=== PATIENT | female | born 2000 | race Caucasian/White ===

== ENCOUNTER 2024-05-01 07:26 | Emergency (ER) | payer OTHER ==
[~2024-05-01] VITALS: Ht 160 cm; Wt 70.2 kg
[2024-05-01 07:29] VITALS: BP 128/84; TEMP 97; O2SAT 100
[2024-05-01 08:32] LABS: KETONE, URINE AUTO RFX NEGATIVE (NEGATIVE); RBC, URINE AUTO RFX 0 /HPF (0-3); SQUAM EPITHELIAL CELL UR AURFX 3 /HPF (0-6); WBC, URINE AUTO RFX 5 /HPF (0-3)
[2024-05-01 08:34] LABS: LEUKOCYTE ESTERASE UR AUTO RFX 1+ (NEGATIVE); NITRITE, URINE AUTO RFX POSITIVE (NEGATIVE)
[2024-05-01] MEDS: IBUPROFEN 800 MG TAB PO ONE (12:15)
[2024-05-01] MEDS: CEFDINIR 300 MG CAP (OMNICEF) PO ONE (14:00)
[2024-05-01 14:25] LABS: GC DNA AMPLIFICATION NEGATIVE (NEGATIVE)
[2024-05-01] MEDS ORDERED: METR70GE8 PV (14:38)
[2024-05-01] MEDS ORDERED: CEFD300CAP PO (14:38)
[2024-05-01 15:49] LABS: URINE PREG TEST NEGATIVE (NEGATIVE)
== END 2024-05-01 14:46 | disposition home or self-care (01) ==
LOC: M ED 07:26
DX: N30.00 Acute cystitis without hematuria (principal); N76.0 Acute vaginitis; N83.202 Unspecified ovarian cyst, left side; Z90.89 Acquired absence of other organs; Z79.2 Long term (current) use of antibiotics; Z79.899 Other long term (current) drug therapy

== ENCOUNTER → 2024-11-21 | Outpatient (CLI) | payer OTHER ==
[~2024-11-21] MED LIST: CEFD300CAP PO; METR70GE8 PV
== END ==
LOC: M RAD 15:17
PROVIDERS: ATTEND Physician Assistant
DX: M50.021 Cervical disc disorder at C4-C5 level with myelopathy (principal); M48.02 Spinal stenosis, cervical region; M47.812 Spondylosis without myelopathy or radiculopathy, cervical region